=== PATIENT | female | born 1990 | race Caucasian/White ===

== ENCOUNTER 2023-04-29 08:47 | Outpatient (AMB) | payer OTHER, SELFPAY ==
--- NOTE | 2023-04-29 09:38 | MHC.OFFWIV ---
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 Pt also has c/o fever and a bad cough. Allergies clarithromycin [From Biaxin] Adverse Reaction (Intermediate, Verified 04/29/23 09:39) Hives tree nut Adverse Reaction (Intermediate, Verified 04/29/23 09:39) Anaphylaxis Do you need a note to return to daycare/school/sports/work: Yes HPI HPI Comments History of Present Illness Details This is a 32-year-old female with a past medical history of asthma presenting for evaluation of fevers, cough, postnasal drip and rhinorrhea that she has had for the past 6 days. Patient states that she took COVID test at home which were negative x3 over the weekend. Patient reports a Tmax of 101? and her temperature this morning prior to coming to the clinic was 100?. Patient has not taken antipyretic medication for management of her fevers. Patient was prescribed fluticasone and Tessalon by her primary care provider that has not been helpful for her symptoms she reports using her albuterol inhaler several times daily. Upon evaluation the patient is afebrile with an oxygenation of 97% on room air. Review of Systems Const All systems reviewed & are unremarkable except as noted in HPI and below Eyes Reports no additional complaints ENT Reports no additional complaints, Reports post nasal drip and Denies sore throat Card Reports no additional complaints and Denies dyspnea Resp Reports cough, Denies dyspnea and Reports wheezing Skin/Breast Reports system reviewed and no additional complaints, except as documented Psych Reports no additional complaints Aller/Immun Reports wheezing Physical Exam Vital Signs: Last Vital Signs Temp 97.4 F 04/29/23 09:49 Pulse 115 H 04/29/23 09:49 BP 128/80 04/29/23 09:49 Pulse Ox 97 04/29/23 09:49 Oxygen Delivery Method Room Air 04/29/23 09:49 BMI result Body Mass Index 44.1 Const General: cooperative, healthy appearing, comfortable, no acute distress and well developed; No ill appearing Nutritional Appearance: overweight Orientation/consciousness: patient oriented x3 Limitations: no limitations HEENT Head: Yes normal to inspection Ears: hearing grossly normal bilaterally, external ears normal, TM's normal bilaterally and EAC's normal General nose exam: Normal external nose present Face and sinus: Yes normal facial exam and No sinus tenderness Mouth: Normal oral and palatal mucosa present and moist mucous membranes Teeth and gingiva: dentition normal Throat: Yes postnasal drainage and Yes other (There is no edema, exudates or erythema of the posterior oropharynx) Resp Effort & Inspection: normal respiratory effort, able to speak in complete sentences, no audible wheezes, Actively coughing, no respiratory distress and other (No tachypnea) Auscultation: clear to auscultation bilaterally Cardio Rate: regular rate (HR 92 bpm) Rhythm: regular rhythm Skin General skin exam: no rashes or lesions noted Neuro General: patient oriented x3 Psych Appearance: grossly normal Mental Status: mental status grossly normal Insight: Good insight present (Psych) Judgement: Good judgement present (Psych) Assessment & Plan Assessment & Plan (1) Upper respiratory infection: Code(s): J06.9 - Acute upper respiratory infection, unspecified Plan: Patient's symptoms are consistent with an upper respiratory infection and she is afebrile at this time. Lungs are clear to auscultation bilaterally. Unfortunately her symptoms have exacerbated her asthma. SARS respiratory panel is ordered and pending and the patient will be given a burst of prednisone for 4 days. Orders: Orders SARS-CoV2/FLU/RSV Today R09.89 - Other specified symptoms and signs involving the circulatory and respiratory systems Medications: New prednisone 40 mg (2 x 20 mg) PO DAILY 8 tabs 0RF Coding Level of Care Code Est Pt Level 3 (23807) Diagnoses Upper respiratory infection J06.9 Time Spent (min) 20
[2023-04-29 09:49] VITALS: BP 128/80; PULSE 115; TEMP 36.3; O2SAT 97; BMI 44.1
== END 2023-04-29 10:29 | disposition home or self-care (01) ==
PROVIDERS: Visit Provider Physician Assistant
DX: J06.9 Acute upper respiratory infection, unspecified (principal)
CPT/HCPCS: 99213

== ENCOUNTER 2023-04-29 09:51 | Outpatient (REF) | payer OTHER, SELFPAY ==
[2023-04-29 15:01] LABS: Influenza A PCR NEGATIVE (Negative); Influenza B PCR NEGATIVE (Negative); Resp Syncy Virus RNA Qual PCR POSITIVE (Negative); SARS COV2 PCR INHOUSE NEGATIVE (Negative)
== END 2023-04-29 09:52 | disposition home or self-care (01) ==
LOC: HO.LAB 09:51
PROVIDERS: Visit Provider Physician Assistant
DX: Z11.52 Encounter for screening for COVID-19 (principal); Z20.822 Contact with and (suspected) exposure to COVID-19; R09.89 Other specified symptoms and signs involving the circulatory and respiratory systems
CPT/HCPCS: 0241U